=== PATIENT | male | born 1950 | race Caucasian/White ===

== ENCOUNTER 2017-07-16 20:30 | Emergency (ER) | payer MEDICARE, BC | END 2017-07-16 22:47 | disposition home or self-care (01) | LOC: D.ER 20:30 | DX: M54.16 Radiculopathy, lumbar region (principal); D69.2 Other nonthrombocytopenic purpura; K21.9 Gastro-esophageal reflux disease without esophagitis; F17.200 Nicotine dependence, unspecified, uncomplicated ==

== ENCOUNTER 2020-11-16 21:23 | Inpatient (IN) | payer MEDICARE, BC ==
[~2020-11-16] VITALS: Ht 180.3 cm; Wt 72.7 kg
[2020-11-16 21:24] VITALS: BP 129/67
[2020-11-16] MEDS ORDERED: SULINDAC200 MG PO (21:27)
[2020-11-16] MEDS ORDERED: GABAPENTIN100 MG PO (21:28)
[2020-11-16] MEDS ORDERED: CELEXA40 MG PO (21:28)
[2020-11-16] MEDS ORDERED: PEPCID AC20 MG PO (21:28)
[2020-11-16 21:30] VITALS: BP 124/79
[2020-11-16 21:55] LABS: BASOPHILS 0.2 % (0-2); EOSINOPHILS 0.5 % (0-7); HEMATOCRIT 41.4 % (42.0-54.0); IMMATURE GRANULOCYTES 0.1 % (0-5); LYMPHOCYTE ABS# 0.56 10x3/uL (1.32-3.57); MCH 29.4 pg (26.0-34.0); MCHC 33.8 g/dL (31.0-37.0); MEAN PLATELET VOLUME 9.2 fL (7.4-10.4); NEUTROPHIL ABS# 6.43 10x3/uL (1.78-5.38); NEUTROPHILS 80.2 % (40-80); PLATELET COUNT 219 10x3/uL (130-400); RBC 4.76 10x6/uL (4.20-6.10); RDW 15.3 % (11.5-14.5)
[2020-11-16 22:00] VITALS: BP 125/67
[2020-11-16 22:04] LABS: SARS-CoV-2 ANTIGEN NEGATIVE- SARS-COV-2 (NEGATIVE)
[2020-11-16 22:09] LABS: CALC OSMOLALITY 276 mosm/kg (275-300); CALCIUM 8.7 mg/dL (8.5-10.1); CARBON DIOXIDE 27.5 mmol/L (21.0-32.0); CHLORIDE - SERUM 102 mmol/L (98-107); CREATININE - SERUM 0.9 mg/dL (0.6-1.3); GLUCOSE 103 mg/dL (74-106); SODIUM 137 mmol/L (136-145); UREA NITROGEN 22 mg/dL (7-18); eGFR NON AFRICAN AMERICAN 89 mL/min (90-120)
[2020-11-16 22:23] LABS: ALBUMIN 3.6 g/dL (3.4-5.0); ALKALINE PHOSPHATASE 87 U/L (30-120); ALT (SGPT) 31 U/L (10-68); BILIRUBIN - TOTAL 0.66 mg/dL (0.2-1.3); MAGNESIUM - SERUM 1.7 mg/dL (1.8-2.4); PRO BNP 34 pg/mL (0-125); PROTEIN - SERUM 6.8 g/dL (6.4-8.2)
[2020-11-16 22:25] LABS: TROPONIN-I < 0.017 ng/mL (0.000-0.060)
[2020-11-16 23:00] VITALS: BP 103/51
[2020-11-17] VITALS (8 sets, daily range): BP systolic 100–190; BP diastolic 50–73; Ht 180.3 cm; Wt 72.7 kg
[2020-11-17 00:23] LABS: BILIRUBIN NEGATIVE (NEGATIVE); KETONE NEGATIVE (NEGATIVE); NITRITE NEGATIVE (NEGATIVE); UROBILINOGEN NORMAL mg/dL (< 2)
[2020-11-17 00:25] LABS: BACTERIA NONE SEEN HPF (NONE SEEN); SQUAMOUS EPITHELIAL 0-5 HPF (0-4); WHITE CELLS - URINE 0-5 HPF (0-1)
--- NOTE | 2020-11-17 01:56 | NUR ---
PT RECEIVED TO ROOM 2139 VIA EC ACCOMPANIED BY ER NURSE. PT AA&O NO ACUTE DISTRESS, VSS, PIV TO LEFT AC INUFSING NS. ADMIT COMPLETED. PT DENIES ANY NEEDS. CALL LIGHT IN REACH PUI ISOALTION UPHELD. WILL CONTNUE TO MONITOR
[2020-11-17 07:37] LABS: BASOPHILS 0 % (0-2); EOSINOPHILS 0 % (0-7); HEMATOCRIT 39.4 % (42.0-54.0); HEMOGLOBIN 13.3 g/dL (13.5-17.5); IMMATURE GRANULOCYTES 0.3 % (0-5); LYMPHOCYTE ABS# 0.69 10x3/uL (1.32-3.57); MCH 29.5 pg (26.0-34.0); MCHC 33.8 g/dL (31.0-37.0); MCV 87.4 fL (80.0-100.0); MEAN PLATELET VOLUME 9.3 fL (7.4-10.4); MONOCYTES 5.1 % (2-11); NEUTROPHIL ABS# 10.14 10x3/uL (1.78-5.38); NEUTROPHILS 88.6 % (40-80); PLATELET COUNT 215 10x3/uL (130-400); RBC 4.51 10x6/uL (4.20-6.10); RDW 15.4 % (11.5-14.5)
[2020-11-17 08:07] LABS: ALBUMIN 3.3 g/dL (3.4-5.0); ALKALINE PHOSPHATASE 73 U/L (30-120); ALT (SGPT) 33 U/L (10-68); BILIRUBIN - TOTAL 0.81 mg/dL (0.2-1.3); C-REACTIVE PROTEIN 6.5 mg/dL (0.0-0.9); CALC OSMOLALITY 284 mosm/kg (275-300); CALCIUM 8.5 mg/dL (8.5-10.1); CARBON DIOXIDE 25.6 mmol/L (21.0-32.0); CHLORIDE - SERUM 106 mmol/L (98-107); CREATININE - SERUM 0.8 mg/dL (0.6-1.3); FERRITIN 123 ng/mL (3-244); LDH 187 U/L (85-227); MAGNESIUM - SERUM 2.1 mg/dL (1.8-2.4); PHOSPHOROUS 3.5 mg/dL (2.5-4.9); POTASSIUM - SERUM 4.4 mmol/L (3.5-5.1); PROTEIN - SERUM 5.9 g/dL (6.4-8.2); SODIUM 140 mmol/L (136-145); UREA NITROGEN 19 mg/dL (7-18); eGFR NON AFRICAN AMERICAN > 90 mL/min (90-120)
[2020-11-17 08:08] LABS: GLUCOSE 162 mg/dL (74-106)
[2020-11-17 08:16] LABS: WBC 11.5 10x3/uL (4.8-10.8)
--- NOTE | 2020-11-17 08:55 | NUR ---
AM MEDS GIVEN AT THIS TIME. PT AWAKE AND ALERT, RR EVEN NON LABORED WITH O2 IN PLACE. COUGH NOTED. PT TALKATIVE, ANSWERS QUESTIONS APPROP. PT DENIES ANY PAIN OR NEEDS AT THIS TIME. SPUTUM COLLECTION CUP AT BEDSIDE. INSTRUCTED ON USE. NO FURTHER NEEDS VOICED. CLWR.
[2020-11-17 12:09] LABS: ERYTHROCYTE SEDIMENTATION RATE 11 mm/hr (0-20)
--- NOTE | 2020-11-17 12:45 | NUR ---
PT SITTING UP IN BED EATING LUNCH TRAY, RR EVEN NON LABORED, O2 IN PLACE , IV INFUSING WITHOUT COMPLICATIONS. PT GIVEN FRESH WATER PER REQUEST. NO FURTHER NEEDS VOICED,CLWR.
[2020-11-18 01:05] VITALS: BP 118/62
--- NOTE | 2020-11-18 02:02 | NUR ---
11/17/202099 RESTING IN BED, DENIES ANY C/O HAS A NON PRODUCTIVE COUGH, O2 @ 2L/NC NO NEEDS VOICED
[2020-11-18 06:04] VITALS: BP 123/74
[2020-11-18 07:06] LABS: BASOPHILS 0 % (0-2); EOSINOPHILS 0 % (0-7); HEMATOCRIT 35.6 % (42.0-54.0); HEMOGLOBIN 12.1 g/dL (13.5-17.5); IMMATURE GRANULOCYTES 0.2 % (0-5); LYMPHOCYTE ABS# 0.57 10x3/uL (1.32-3.57); MCH 29.4 pg (26.0-34.0); MCV 86.6 fL (80.0-100.0); MEAN PLATELET VOLUME 9.4 fL (7.4-10.4); MONOCYTES 4.2 % (2-11); NEUTROPHIL ABS# 8.56 10x3/uL (1.78-5.38); NEUTROPHILS 89.6 % (40-80); PLATELET COUNT 211 10x3/uL (130-400); RBC 4.11 10x6/uL (4.20-6.10); RDW 15.5 % (11.5-14.5); WBC 9.6 10x3/uL (4.8-10.8)
[2020-11-18 07:23] LABS: ALKALINE PHOSPHATASE 60 U/L (30-120); ALT (SGPT) 28 U/L (10-68); BILIRUBIN - TOTAL 0.45 mg/dL (0.2-1.3); CALC OSMOLALITY 285 mosm/kg (275-300); CALCIUM 8.2 mg/dL (8.5-10.1); CARBON DIOXIDE 24.2 mmol/L (21.0-32.0); CHLORIDE - SERUM 107 mmol/L (98-107); CREATININE - SERUM 0.7 mg/dL (0.6-1.3); GLUCOSE 165 mg/dL (74-106); MAGNESIUM - SERUM 1.9 mg/dL (1.8-2.4); PHOSPHOROUS 3.1 mg/dL (2.5-4.9); POTASSIUM - SERUM 4.3 mmol/L (3.5-5.1); PROTEIN - SERUM 5.6 g/dL (6.4-8.2); SODIUM 141 mmol/L (136-145); UREA NITROGEN 15 mg/dL (7-18); eGFR NON AFRICAN AMERICAN > 90 mL/min (90-120)
[2020-11-18 09:00] VITALS: BP 130/70
--- NOTE | 2020-11-18 16:33 | NUR ---
I have reviewed this patient and I concur with the Shift Assessment completed by the Licensed Practical Nurse today this shift.
[2020-11-18 22:46] VITALS: BP 127/71
[2020-11-19 03:20] VITALS: BP 117/62
--- NOTE | 2020-11-19 07:00 | NUR ---
RECEIVED REPORT. ASSUMED CARE OF PATIENT. PATIENT REMAINS IN DROPLET ISOLATION FOR PUI. WHITE BOARD UPDATED, BEDSIDE SHIFT REPORT COMPLETE. NO DISTRESS.
[2020-11-19 07:15] LABS: BASOPHILS 0 % (0-2); EOSINOPHILS 0 % (0-7); HEMATOCRIT 34.9 % (42.0-54.0); HEMOGLOBIN 11.8 g/dL (13.5-17.5); IMMATURE GRANULOCYTES 0.3 % (0-5); LYMPHOCYTE ABS# 0.63 10x3/uL (1.32-3.57); LYMPHOCYTES 7.9 % (15-50); MCH 29.4 pg (26.0-34.0); MCHC 33.8 g/dL (31.0-37.0); MCV 86.8 fL (80.0-100.0); MEAN PLATELET VOLUME 9.4 fL (7.4-10.4); MONOCYTES 6.4 % (2-11); NEUTROPHIL ABS# 6.83 10x3/uL (1.78-5.38); NEUTROPHILS 85.4 % (40-80); PLATELET COUNT 236 10x3/uL (130-400); RBC 4.02 10x6/uL (4.20-6.10); RDW 15.7 % (11.5-14.5)
[2020-11-19 07:53] LABS: ALKALINE PHOSPHATASE 63 U/L (30-120); ALT (SGPT) 33 U/L (10-68); BILIRUBIN - TOTAL 0.48 mg/dL (0.2-1.3); CALC OSMOLALITY 282 mosm/kg (275-300); CALCIUM 8.7 mg/dL (8.5-10.1); CARBON DIOXIDE 24.3 mmol/L (21.0-32.0); CHLORIDE - SERUM 107 mmol/L (98-107); CREATININE - SERUM 0.7 mg/dL (0.6-1.3); GLUCOSE 142 mg/dL (74-106); MAGNESIUM - SERUM 1.9 mg/dL (1.8-2.4); PHOSPHOROUS 2.9 mg/dL (2.5-4.9); POTASSIUM - SERUM 4.2 mmol/L (3.5-5.1); SODIUM 141 mmol/L (136-145); UREA NITROGEN 12 mg/dL (7-18); eGFR NON AFRICAN AMERICAN > 90 mL/min (90-120)
[2020-11-19 08:06] VITALS: BP 137/71
--- NOTE | 2020-11-19 10:43 | NUR ---
COVID PCR RESULTED NEGATIVE AT THIS TIME.
[2020-11-19] MEDS ORDERED: FEXOFENADINE HC60 MG PO (11:08)
[2020-11-19] MEDS ORDERED: TESSALON PERLE100 MG PO (11:08)
[2020-11-19] MEDS ORDERED: MUCINEX600 MG PO (11:09)
[2020-11-19] MEDS ORDERED: FLORAJEN DIGES1 EACH PO (11:09)
[2020-11-19] MEDS ORDERED: DULERA 200 MCG8.8 GM INH (11:09)
[2020-11-19] MEDS ORDERED: PROAIR HFA8.5 G1 INH (11:09)
[2020-11-19] MEDS ORDERED: DECADRON4 MG PO (11:10)
[2020-11-19] MEDS ORDERED: AZITHROMYCIN500 MG PO (11:10)
[2020-11-19] MEDS ORDERED: OMNICEF300 MG PO (11:10)
[2020-11-19 12:00] VITALS: BP 133/62
--- NOTE | 2020-11-19 13:00 | NUR ---
20 GAUGE IV REMOVED FROM LEFT FOREARM. CATHETER TIP INTACT. NO BLEEDING FROM SITE. 2X2 GAUZE APPLIED AND SECURED WITH BANDAID. TOELRATED IV REMOVAL WELL. DISCHARGE INSTRUCTIONS PROVIDED TO PATIENT. PATIENT VERBALIZED UNDERSTANDING OF ALL INSTRUCTIONS PROVIDED. PATEINT SPOUSE IS ON HER WAY TO PICK PATIENT UP AT THIS TIME.
--- NOTE | 2020-11-19 13:28 | NUR ---
PATIENT LEFT UNIT VIA WHEELCHAIR. PATIENT DISCHARGE TO HOME IN STABLE CONDITION IN PRIVATE CAR WITH HIS SPOUSE. PATIENT LEFT UNIT WITH ALL PERSONAL BELONGINGS. NO DISTRESS UPON DISCHARGING TO HOME.
== END 2020-11-19 13:34 | disposition home or self-care (01) | DRG 195 ==
LOC: D.ER 21:23 → D.M2 11-17 01:30
PROVIDERS: Family Medicine; ADMIT Emergency Medicine; ATTEND Emergency Medicine
DX: J18.9 Pneumonia, unspecified organism (principal); Z20.822 Contact with and (suspected) exposure to COVID-19; K21.9 Gastro-esophageal reflux disease without esophagitis; G89.29 Other chronic pain; M54.9 Dorsalgia, unspecified; F41.9 Anxiety disorder, unspecified; F32.9 Major depressive disorder, single episode, unspecified